=== PATIENT | female | born 1975 | race Caucasian/White ===

== ENCOUNTER 2018-12-31 13:29 | Observation (INO) ==
[2018-12-31 14:40] LABS: Basophils # 0.1 K/mcL (0.0-0.2); Basophils % 0.7 %; Eosinophils # 0.2 K/mcL (0.0-0.6); Eosinophils % 2.2 %; Hematocrit 40.2 % (35.3-44.9); Hemoglobin 12.8 g/dL (11.5-15.4); Immature Granulocytes % 0.5 % (0-4); Lymphocytes # 3.1 K/mcL (0.6-4.6); Mean Corpuscular HGB Conc 31.8 g/dL (31.6-35.5); Mean Corpuscular Hemoglobin 26.9 pg (28.0-33.3); Mean Corpuscular Volume 84.5 fL (83.0-100.0); Mean Platelet Volume 11.7 fL (9.4-12.4); Monocytes # 0.7 K/mcL (0.0-1.3); Monocytes % 6.2 %; Neutrophils # 6.8 K/mcL (1.6-8.9); Platelet Count 166 K/mcL (140-400); Red Blood Count 4.76 M/mcL (3.82-4.97); Red Cell Distribution Width 15.3 % (11.5-14.5); Segmented Neutrophils % 62.4 %
[2018-12-31 14:51] LABS: BUN/Creatinine Ratio 11 (6-26); Blood Urea Nitrogen 9 mg/dL (6-20); Carbon Dioxide 25 mEq/L (23-29); Chloride 109 mEq/L (98-107); Glucose 93 mg/dL (70-105); Osmolality,Calculated 288 (280-300); Potassium 4.3 mEq/L (3.5-5.1); Sodium 140 mEq/L (136-145); eGFR For Non-African Americans > 60 (> 60)
[2018-12-31 14:52] LABS: Troponin I < 0.03 ng/mL (< 0.04)
--- NOTE | 2018-12-31 16:08 | Emergency Department Note ---
Disposition Clinical Impression: Chest pain Qualifiers: Chest pain type: unspecified Qualified Code(s): R07.9 - Chest pain, unspecified Disposition: Admitted As Inpatient Condition: Fair Time of Disposition: 16:11 General Adult HPI - General Chief complaint: ED Chest Pain Stated complaint: CP/Multiple complaints Time Seen by Provider: 12/31/18 15:11 Source: patient, family Limitations: no limitations - History of Present Illness HPI Narrative: This is a 43-year-old female who presented with chest pain. It does sound like she has had multiple stressors in his had some arguments with her family however she also describes that she has a history of cornering artery disease and has a previous PTCA with an occlusion. Does not actually have any stents and. She states that this pain did feel similar. So she has come in. She has not had any lower extremity pain or swelling. She states that her mother had her first at age 45 which is the patient's current age. Pain Scale: 10 - Related Data Home Medications Medication Instructions Recorded Confirmed Gabapentin [Neurontin] 600 mg PO BID 12/31/18 12/31/18 Sertraline [Zoloft] 100 mg PO DAILY 12/31/18 12/31/18 Ziprasidone HCl [Geodon] 40 mg PO BID 12/31/18 12/31/18 Zolpidem [Ambien] 10 mg PO HS PRN 12/31/18 12/31/18 Allergies Allergy/AdvReac Type Severity Reaction Status Date / Time acetaminophen [From Percocet] Allergy Anaphylaxis Verified 09/12/16 12:30 Erythromycin Base Allergy Rash Verified 09/12/16 12:30 Iodinated Contrast- Oral and Allergy Rash Verified 09/12/16 12:30 IV Dye [Iodinated Contrast Media - Oral and] oxycodone [From Percocet] Allergy Anaphylaxis Verified 09/12/16 12:30 All systems ED: reviewed and negative except as stated. 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 Absent: wheezes - Cardiovascular Cardiovascular exam: Present: regular rate, normal rhythm - Abdominal Exam Abdominal exam: Present: soft, Non-Tender - Extremities Exam Extremities exam: Absent: normal capillary refill, pedal edema - Neurological Exam Neurological exam: Present: alert, oriented X3 - Skin Skin exam: Present: warm, dry Course Course Narrative: This patient presents with chest pain and there could be an anxiety component here but unfortunately she has established coronary artery disease and is staying that her pain feels similar. She has had previous PTCA. Has history of smoking and family history. She will need to be ruled out for cardiac standpoint. No new changes on the EKG. First troponin is come back negative. Chest x-ray no acute process as interpreted by the radiologist. Vital Signs Temperature 97.6 F 12/31/18 13:30 Pulse Rate 74 12/31/18 13:30 Respiratory Rate 15 12/31/18 13:30 Blood Pressure 127/81 12/31/18 13:30 O2 Sat by Pulse Oximetry 97 12/31/18 13:30 Temperature 98.0 F 12/31/18 18:37 Pulse Rate 60 12/31/18 18:37 Respiratory Rate 18 12/31/18 18:37 Blood Pressure 142/90 12/31/18 18:37 O2 Sat by Pulse Oximetry 97 12/31/18 18:37 Oxygen Delivery Oxygen Delivery Room Air Medical Decision Making - Lab Data Result diagrams: 12/31/18 14:08 12/31/18 14:08 Lab Results 12/31/18 12/31/18 12/31/18 Range/Units 14:08 14:08 14:08 WBC 10.9 (4.3-11.1) K/mcL RBC 4.76 (3.82-4.97) M/mcL Hgb 12.8 (11.5-15.4) g/dL Hct 40.2 (35.3-44.9) % MCV 84.5 (83.0-100.0) fL MCH 26.9 L (28.0-33.3) pg MCHC 31.8 (31.6-35.5) g/dL RDW 15.3 H (11.5-14.5) % Plt Count 166 (140-400) K/mcL MPV 11.7 (9.4-12.4) fL Immature Gran % 0.5 (0-4) % Seg Neutrophils % 62.4 % Lymphocytes % 28.0 % Monocytes % 6.2 % Eosinophils % 2.2 % Basophils % 0.7 % Neutrophils # 6.8 (1.6-8.9) K/mcL Lymphocytes # 3.1 (0.6-4.6) K/mcL Monocytes # 0.7 (0.0-1.3) K/mcL Eosinophils # 0.2 (0.0-0.6) K/mcL Basophils # 0.1 (0.0-0.2) K/mcL Sodium 140 (136-145) mEq/L Potassium 4.3 (3.5-5.1) mEq/L Chloride 109 H (98-107) mEq/L Carbon Dioxide 25 (23-29) mEq/L BUN 9 (6-20) mg/dL Creatinine 0.80 (0.60-1.20) mg/dL Est GFR ( Amer) > 60 (> 60) Est GFR (Non-Af Amer) > 60 (> 60) BUN/Creatinine Ratio 11 (6-26) Glucose 93 (70-105) mg/dL Calculated Osmolality 288 (280-300) Calcium 9.0 (8.6-10.3) mg/dL Troponin I < 0.03 (< 0.04) ng/mL B-Natriuretic Peptide 34 (Less than 100) pg/mL - EKG Data EKG #1 EKG attestation: Yes I reviewed and interpreted this EKG. EKG results narrative: EKG interpreted by me showing sinus rhythm at a rate of 66, QRS of 95, QTC of 407, axis of 37. No ischemic changes.
[2018-12-31] MEDS ORDERED: Naloxone 0.4 MG/ML INJ IVP PRN (16:50)
--- NOTE | 2018-12-31 17:03 | Internal Med History&Physical ---
Date of Encounter: 12/31/18 Time of Encounter: 17:03 Internal Medicine - H&P: HPI Chief complaint: cp Admitted From: Emergency Dept History of present illness: Ms. Brambila is a 43 year old female past medical history of hypertension COPD blood clot-DVT schizophrenia bipolar recent suicide attempt current smoker- patient presented to [facility] ED with complaints of chest pain. Patient states that for the past week she has been experiencing midsternal chest pain which she describes as stabbing describing it as someone "stabbing her in the heart with a knife"-she also experiences numbness and tingling during the pain which radiates to her arms bilaterally neck and face. Initially the pain with common go and then become constant. Aggravating factors include emotional distress and when she takes a deep breath .there are no relieving factors patient states that she took aspirin and nitroglycerin without any relief. Patient expresses that she has been under a lot of emotional stress lately and that she was just recently discharged from psychiatric hospital in [place] on November. Patient states she has been taking her medications because she does not have any insurance or primary care provider. She has been to multiple hospitals in the past 2-3 years underwent a stress test at [place] a balloon catheter at [facility] 3 years ago. She states she had a heart attack 2 years ago at [facility]-she also has a family history states her mother had a heart attack at age 45 and emphasized that the HEENT now. EKG shows normal sinus rhythm with no ST-T wave abnormalities chest x-ray with no acute process troponin was negative rest of lab work was unremarkable. She has been admitted for further work up and evaluation. Currently patient has chest pain up on palpation as well as on movement. During the interview patient is very short agitated express several times that she has been under a lot of stress. Discussed treatment plan with the patient who verbalized understanding she is currently hemodynamically stable at this time. Past Med Surg Social Fam HX - Past Medical History Medical history: asthma, COPD, hypertension, kidney stones, migraine, myocardial infarction Psychiatric history: anxiety, depression, panic disorder - Past Surgical History Additional surgical history: balloon heart cath - Social History Smoking Status: Current every day smoker Smokeless Tobacco Status: No Alcohol use: none Drug use: opiates, prescription drug abuse - Family History Mother Living Status: Still Living Hx Family Cardiac Disorders: Yes (SC at age 45) Internal Medicine - H&P: Meds Gabapentin [Neurontin] 600 mg PO BID 12/31/18 [History] Sertraline [Zoloft] 100 mg PO DAILY 12/31/18 [History] Ziprasidone HCl [Geodon] 40 mg PO BID 12/31/18 [History] Zolpidem [Ambien] 10 mg PO HS PRN 12/31/18 [History] Allergy/AdvReac Type Severity Reaction Status Date / Time acetaminophen [From Percocet] Allergy Anaphylaxis Verified 09/12/16 12:30 Erythromycin Base Allergy Rash Verified 09/12/16 12:30 Iodinated Contrast- Oral and Allergy Rash Verified 09/12/16 12:30 IV Dye [Iodinated Contrast Media - Oral and] oxycodone [From Percocet] Allergy Anaphylaxis Verified 09/12/16 12:30 All Systems PM: A 10-system review of systems was performed and is negative for pertinent fin dings except as documented above in the HPI. - Constitutional Constitutional: no chills, no fever(s), no night sweats - EENT Eyes: no change in vision, no discharge, no pain, no photophobia Ears: no ear discharge, no ear pain, no tinnitus Nose, mouth and throat: no dysphagia, no nasal discharge, no neck pain, no sore throat - Cardiovascular Cardiovascular ROS IM: chest pain, irregular heart rhythm - Respiratory Respiratory: no cough, no dyspnea, no wheezing, no excessive phlegm production - Gastrointestinal Gastrointestinal: no abdominal pain, no diarrhea, no hematemesis, no hematochezia, no melena, no nausea, no vomiting - Genitourinary Genitourinary: no change in urinary stream, no dysuria, no flank pain, no hematuria - Musculoskeletal Musculoskeletal ROS IM: no numbness, no tingling - Integumentary Integumentary IM: no rash, no unusual bruising - Neurological Neurological ROS: no confusion, no convulsions, no focal weakness, no numbness, no tingling, no tremor(s) - Hematologic/Lymphatic Hematologic/Lymphatic: no easy bruising - Constitutional Vitals: Temp Pulse Resp BP Pulse Ox 97.6 F 64 18 128/76 99 12/31/18 13:30 12/31/18 17:01 12/31/18 17:01 12/31/18 15:01 12/31/18 17:01 General appearance: Present: A&O X 3 Exam: . - Head Head exam: Present: atraumatic, normocephalic - Eye Eye exam: Present: PERRL, conjuntiva pink, sclera anicteric Pupils: Present: PERRL - Neck Neck exam general surgery: Present: supple, trachea midline. Absent: lymphadenopathy - Respiratory Respiratory exam: Present: CTAB. Absent: accessory muscle use, rales, rhonchi, wheezes - Cardiovascular Cardiovascular exam: Present: RRR, +S1, +S2. Absent: diastolic murmur, gallop, rubs, systolic murmur - GI/Abdominal GI/Abdominal exam: Present: normal bowel sounds, soft, no peritoneal signs. Absent: distended, tenderness - Extremities Exam Extremities exam: Present: warm, radial pulses palpable and symmetrical. Absent: calf tenderness, cyanotic, pedal edema - Neurological Exam Neurological exam: Present: CN II-XII intact, oriented X3, no focal deficits. Absent: pronater drift, facial droop, speech deficit - Psychiatric Psychiatric exam: Present: agitated - Skin Skin exam: Present: dry, intact Internal Med - H&P Results - Labs CBC & Chem 7: 12/31/18 14:08 12/31/18 14:08 Labs: Short CBC 12/31/18 Range/Units 14:08 WBC 10.9 (4.3-11.1) K/mcL Hgb 12.8 (11.5-15.4) g/dL Hct 40.2 (35.3-44.9) % Plt Count 166 (140-400) K/mcL Neutrophils # 6.8 (1.6-8.9) K/mcL BMP 12/31/18 14:08 Sodium 140 Potassium 4.3 Chloride 109 H Carbon Dioxide 25 BUN 9 Creatinine 0.80 Glucose 93 Calcium 9.0 Cardiac Enzymes 12/31/18 Range/Units 14:08 Troponin I < 0.03 (< 0.04) ng/mL - EKG Data EKG shows normal: sinus rhythm - Impressions ITS Impressions Chest X-Ray 12/31/18 13:36 IMPRESSION: No evidence for acute cardiopulmonary process. D/ / Gwyn Monroy MD / Gwyn Monroy MD Interpreting Provider: Gwyn Monroy MD - Assessment and Plan (1) Chest pain Current Visit: Yes Status: Acute Assessment and plan: Patient has been experiencing stabbing chest pain for one week with numbness and tingling in arms head and neck during the chest pain it comes and goes aggravated with emotional upset and breathing patient took a nitroglycerin as well as aspirin which did not relieve the pain- risk factors include-obesity hypertension smoking family history-previous SC? Chest pain is reproducible and is present when patient raises arms Patient states she has stress test as well as a balloon angioplasty 2 years ago. Stress. Test performed at [facility] angioplasty at [facility]. She also states she had a heart attack and was treated at [facility] troponins initial troponin negative EKG with no ST-T wave abnormalities check EKG in the a.m. Obtain cardiac echo Nitroglycerin as needed for chest pain Aspirin Lipid profile in the a.m. Nothing by mouth after midnight Tox screen Stress test pending results of pending troponin- Day team reevaluate Qualifiers: Chest pain type: unspecified Qualified Code(s): R07.9 - Chest pain, unspecified (2) HTN (hypertension) Current Visit: Yes Status: Acute Assessment and plan: Patient states she has a history of hypertension however she is currently not on any medications states she does not have a primary care provider or any insurance currently blood pressure is controlled we will continue to monitor Qualifiers: Hypertension type: essential hypertension Qualified Code(s): I10 - Essential (primary) hypertension (3) Bipolar 1 disorder Current Visit: Yes Status: Acute Assessment and plan: History of bipolar disorder was recently discharged from psychiatric hospital in [place] -we will need to set up follow-up as outpatient (4) Schizo affective schizophrenia Current Visit: Yes Status: Acute Assessment and plan: Recently discharged from psychiatric hospital-we will need outpatient follow-up (5) Nicotine dependence Current Visit: Yes Status: Acute Assessment and plan: History of 1-1/2 pack per day smoker encouraged patient to stop smoking we will need smoking cessation education prior to discharge Qualifiers: Nicotine product type: cigarettes Substance use status: uncomplicated Qualified Code(s): F17.210 - Nicotine dependence, cigarettes, uncomplicated (6) COPD (chronic obstructive pulmonary disease) Current Visit: Yes Status: Acute Assessment and plan: 1 her history COPD non-oxygen dependent uses inhalers at home current smoker does not appear to be in exacerbation at this time Qualifiers: COPD type: unspecified COPD Qualified Code(s): J44.9 - Chronic obstructive pulmonary disease, unspecified (7) DVT prophylaxis Current Visit: Yes Status: Acute Assessment and plan: States she has a history of DVT-Lovenox subcutaneous - Time Spent With Patient Total time spent is greater than 50% in coordination of care (as documented) at patient's floor/unit and/or counseling patient:
[2018-12-31] MEDS: Ibuprofen 400 MG TABLET PO PRN (17:24)
[2018-12-31] MEDS ORDERED: Nitroglycerin 0.4 MG TAB.SUBL SL PRN (18:16)
[2018-12-31] MEDS ORDERED: Ondansetron 4 MG/2 ML VIAL IVP ONE (21:30)
[2018-12-31] MEDS ORDERED: Ibuprofen 400 MG TABLET PO ONE (21:31)
[2018-12-31 23:29] LABS: Amphetamine Screen,Urine Negative ng/mL (Cutoff=1000); Barbiturate Screen,Urine Negative ng/mL (Cutoff=200); Benzodiazepines Screen,Urine Negative ng/mL (Cutoff=200); Cannabinoid Screen,Urine Negative ng/mL (Cutoff = 50); Cocaine Screen,Urine Negative ng/mL (Cutoff= 300); Opiate Screen,Urine Negative ng/mL (Cutoff=300); Phencyclidine Screen,Urine Negative ng/mL (Cutoff=25)
[2019-01-01] MEDS: Ziprasidone 20 MG CAPSULE PO SCH ×3 (00:33→19:59)
[2019-01-01] MEDS: Gabapentin 300 MG CAPSULE PO SCH ×3 (00:34→20:00)
[2019-01-01 03:35] LABS: Basophils # 0.1 K/mcL (0.0-0.2); Basophils % 0.6 %; Eosinophils # 0.2 K/mcL (0.0-0.6); Eosinophils % 2.1 %; Hematocrit 36.7 % (35.3-44.9); Hemoglobin 11.8 g/dL (11.5-15.4); Immature Granulocytes % 0.5 % (0-4); Lymphocytes # 4.1 K/mcL (0.6-4.6); Lymphocytes % 42.1 %; Mean Corpuscular HGB Conc 32.2 g/dL (31.6-35.5); Mean Corpuscular Hemoglobin 27.6 pg (28.0-33.3); Mean Corpuscular Volume 85.7 fL (83.0-100.0); Mean Platelet Volume 11.9 fL (9.4-12.4); Monocytes # 0.6 K/mcL (0.0-1.3); Monocytes % 6.3 %; Neutrophils # 4.7 K/mcL (1.6-8.9); Platelet Count 146 K/mcL (140-400); Red Blood Count 4.28 M/mcL (3.82-4.97); Red Cell Distribution Width 15.6 % (11.5-14.5); Segmented Neutrophils % 48.4 %
[2019-01-01 03:55] LABS: BUN/Creatinine Ratio 13 (6-26); Blood Urea Nitrogen 11 mg/dL (6-20); Calcium 8.7 mg/dL (8.6-10.3); Carbon Dioxide 24 mEq/L (23-29); Chloride 111 mEq/L (98-107); Chol/HDL Ratio 6.3 (0-4.9); Cholesterol 171 mg/dL (< 200); Glucose 94 mg/dL (70-105); HDL Cholesterol 27 mg/dL (40-59); LDL Cholesterol,Calculated 90 mg/dL (0-99); Magnesium 2.2 mg/dL (1.6-2.6); Osmolality,Calculated 291 (280-300); Potassium 4.5 mEq/L (3.5-5.1); Sodium 141 mEq/L (136-145); Triglycerides 269 mg/dL (< 150); eGFR For Non-African Americans > 60 (> 60)
[2019-01-01] MEDS: *HR* Enoxaparin 40 MG/0.4 ML SYRINGE SQ SCH (05:42)
--- NOTE | 2019-01-01 05:57 | Event Note ---
Date of Encounter: 01/01/19 Time of Encounter: 05:55 Notified by nurse of patients heart rate dropping into 40's while sleeping. Patient asymptomatic, states its normal for heart rate to run low while sleeping. Previous EKG on file shows sinus bradycardia. Will continue telemetry monitoring. Nurse to notify of any new changes.
[2019-01-01] MEDS ORDERED: Regadenoson 0.4 MG/5 ML SYRINGE IVP ONE (11:09)
[2019-01-01] MEDS: Aspirin 81 MG TAB.CHEW PO SCH (12:29)
[2019-01-01] MEDS: Ibuprofen 400 MG TABLET PO PRN ×2 (13:45→23:30)
[2019-01-01] MEDS: Ondansetron 4 MG/2 ML VIAL IVP PRN ×2 (13:46→20:00)
--- NOTE | 2019-01-01 18:42 | Internal Med Progress Note ---
Hospitalist Progress Note - Encounter Date of Encounter: 01/01/19 Time of Encounter: 18:39 - Subjective Interval History: Pt seen and examined in the room. She currently is pain free. - Exam Vitals: Temp Pulse Resp BP Pulse Ox 98.1 F 62 16 135/78 94 01/01/19 16:03 01/01/19 16:03 01/01/19 16:03 01/01/19 16:03 01/01/19 16:03 Exam: . - Assessment and Plan (1) Chest pain Current Visit: Yes Status: Acute Assessment and Plan: Trop negative x3. EKG has no acute changes. ECHO mod LVDD. Pending stress test. (2) HTN (hypertension) Current Visit: Yes Status: Acute Assessment and Plan: Patient states she has a history of hypertension however she is currently not on any medications states she does not have a primary care provider or any insurance currently blood pressure is controlled we will continue to monitor (3) Bipolar 1 disorder Current Visit: Yes Status: Acute Assessment and Plan: History of bipolar disorder was recently discharged from psychiatric hospital in [place] -we will need to set up follow-up as outpatient (4) Schizo affective schizophrenia Current Visit: Yes Status: Acute Assessment and Plan: Recently discharged from psychiatric hospital-we will need outpatient follow-up (5) Nicotine dependence Current Visit: Yes Status: Acute Assessment and Plan: History of 1-1/2 pack per day smoker encouraged patient to stop smoking we will need smoking cessation education prior to discharge (6) COPD (chronic obstructive pulmonary disease) Current Visit: Yes Status: Acute Assessment and Plan: 1 her history COPD non-oxygen dependent uses inhalers at home current smoker does not appear to be in exacerbation at this time (7) DVT prophylaxis Current Visit: Yes Status: Acute Assessment and Plan: States she has a history of DVT-Lovenox subcutaneous - Time Spent with Patient Total time spent is greater than 50% in coordination of care (as documented) at patient's floor/unit and/or counseling patient: Greater than 35 minutes Plan of Care Discussed with: patient Internal Medicine: Result - Labs CBC & Chem 7: 01/01/19 02:57 01/01/19 02:57 Labs: Short CBC 01/01/19 Range/Units 02:57 WBC 9.8 (4.3-11.1) K/mcL Hgb 11.8 (11.5-15.4) g/dL Hct 36.7 (35.3-44.9) % Plt Count 146 (140-400) K/mcL Neutrophils # 4.7 (1.6-8.9) K/mcL BMP 01/01/19 02:57 Sodium 141 Potassium 4.5 Chloride 111 H Carbon Dioxide 24 BUN 11 Creatinine 0.84 Glucose 94 Calcium 8.7 Cardiac Enzymes 12/31/18 01/01/19 Range/Units 20:26 02:57 Troponin I < 0.03 < 0.03 (< 0.04) ng/mL - Impressions Impressions Echocardiogram 01/01/19 16:55 Impressions: LVEF 60%. Moderate left ventricular diastolic dysfunction. Normal right ventricular structure and function. Mild mitral regurgitation. Mild tricuspid regurgitation. Mild pulmonic regurgitation. No pulmonary hypertension. Left Ventricular Wall Motion: Rest Echo Findings All wall segments showed normal motion. Findings: Study Quality * Technically adequate exam. ECG Findings * Sinus bradycardia. Left Ventricle * LVEF 60%. * Normal LV chamber size, wall thickness and function. * Moderate left ventricular diastolic dysfunction. Right Ventricle * Normal right ventricular structure and function. Left Atrium * Normal left atrial size. Right Atrium * Normal right atrial size. Aortic Valve * No aortic regurgitation. * Trileaflet aortic valve. * No aortic stenosis. Mitral Valve * Normal mitral valve structure. * No mitral stenosis. * Mild mitral regurgitation. Tricuspid Valve * Normal tricuspid valve structure. * Mild tricuspid regurgitation. * Estimated RA pressure is 3 mmHg. * Estimated RVSP is 25 mmHg. * No pulmonary hypertension. Pulmonic Valve * Pulmonic valve is not well visualized. * No pulmonic stenosis. * Mild pulmonic regurgitation. Pulmonary Artery * Pulmonary artery not well visualized. Aorta * Normally sized aortic root. * Proximal ascending thoracic aorta not well visualized. Pericardium * There is no pericardial effusion present. Interatrial Septum * No evidence of PFO by color Doppler. IVC * Normal IVC dimensions and inspiratory collapse. Consult Discharge Plan - Plan Referrals: NONE,PCP [Primary Care Provider] - (1) Chest pain Qualifiers: Chest pain type: unspecified Qualified Code(s): R07.9 - Chest pain, unspecified (2) HTN (hypertension) Qualifiers: Hypertension type: essential hypertension Qualified Code(s): I10 - Essential (primary) hypertension (5) Nicotine dependence Qualifiers: Nicotine product type: cigarettes Substance use status: uncomplicated Qualified Code(s): F17.210 - Nicotine dependence, cigarettes, uncomplicated (6) COPD (chronic obstructive pulmonary disease) Qualifiers: COPD type: unspecified COPD Qualified Code(s): J44.9 - Chronic obstructive pulmonary disease, unspecified
[2019-01-01] MEDS: Nicotine 7 MG PATCH.TD24 TD SCH (20:03)
[2019-01-01] MEDS ORDERED: DiphenhydraMINE CREAM 28.4 GM TUBE TP PRN (20:54)
[2019-01-02] MEDS: *HR* Enoxaparin 40 MG/0.4 ML SYRINGE SQ SCH (05:46)
[2019-01-02] MEDS: Ibuprofen 400 MG TABLET PO PRN (06:35)
[2019-01-02] MEDS: Nicotine 7 MG PATCH.TD24 TD SCH (08:57)
[2019-01-02] MEDS: Gabapentin 300 MG CAPSULE PO SCH (08:57)
[2019-01-02] MEDS: Ziprasidone 20 MG CAPSULE PO SCH (08:57)
[2019-01-02] MEDS: Aspirin 81 MG TAB.CHEW PO SCH (08:57)
[2019-01-02] MEDS: Ondansetron 4 MG/2 ML VIAL IVP PRN (09:01)
[2019-01-02 11:50] VITALS: BP 123/87
--- NOTE | 2019-01-02 13:12 | Discharge Summary ---
- NOTES TO OUTPATIENT PROVIDER Notes to Outpatient Provider: f/u with PCP within a week. Orders not resulted at time of discharge: Pending orders 01/01/19 08:56 NM tiffanie perf SPECT multi [NM] Routine Date of Encounter: 01/02/19 Time of Encounter: 13:09 - Discharge Diagnosis (1) Chest pain Priority: Primary Status: Acute Qualifiers: Chest pain type: unspecified Qualified Code(s): R07.9 - Chest pain, unspecified (2) HTN (hypertension) Priority: Secondary Status: Chronic Qualifiers: Hypertension type: essential hypertension Qualified Code(s): I10 - Essential (primary) hypertension (3) Bipolar 1 disorder Priority: Secondary Status: Chronic (4) Schizo affective schizophrenia Priority: Secondary Status: Chronic (5) Nicotine dependence Priority: Secondary Status: Chronic Qualifiers: Nicotine product type: cigarettes Substance use status: uncomplicated Qualified Code(s): F17.210 - Nicotine dependence, cigarettes, uncomplicated (6) COPD (chronic obstructive pulmonary disease) Priority: Secondary Status: Chronic Qualifiers: COPD type: unspecified COPD Qualified Code(s): J44.9 - Chronic obstructive pulmonary disease, unspecified (7) DVT prophylaxis Priority: Primary Status: Acute Hospital course: Ms. Brambila is a 43 year old female past medical history of hypertension COPD blood clot-DVT schizophrenia bipolar recent suicide attempt current smoker- patient presented to [facility] ED with complaints of chest pain. Patient states that for the past week she has been experiencing midsternal chest pain which she describes as stabbing describing it as someone "stabbing her in the heart with a knife"-she also experiences numbness and tingling during the pain which radiates to her arms bilaterally neck and face. Initially the pain with common go and then become constant. Aggravating factors include emotional distress and when she takes a deep breath. While in the emergency room, patient vital signs were stable, first set of troponin was negative, EKG has no acute ST-T change. Patient was admitted for further evaluation. An echocardiogram with ejection fraction 60%, moderate left ventricular diastolic dysfunction, normal right ventricular structure and function, mild TR/MR/TR. Patient underwent a stress test on 01/01/2019 which revealed negative for ischemia or infarct, pharmacological stress ECG is negative for ischemia at level of heart rate achieved gaited ejection fraction more than 70%. Further testing showed normal troponin 3, EKG continue failing to show any acute ST-T change. Patient is discharged home today, she will follow-up with PCP within a week. Discharge discussed with: patient Time spent discussing smoking cessation with patient: more than 10 minutes - Time Spent with Patient Total time spent providing and/or coordinating discharge services: Time spent: Greater than 30 minutes - Discharge Medications Prescriptions: Continue Zolpidem [Ambien] 10 mg PO HS PRN PRN Reason: SLEEP Sertraline [Zoloft] 100 mg PO DAILY Gabapentin [Neurontin] 600 mg PO BID Ziprasidone HCl [Geodon] 40 mg PO BID Home Medications: Gabapentin [Neurontin] 600 mg PO BID 12/31/18 [History] Sertraline [Zoloft] 100 mg PO DAILY 12/31/18 [History] Ziprasidone HCl [Geodon] 40 mg PO BID 12/31/18 [History] Zolpidem [Ambien] 10 mg PO HS PRN 12/31/18 [History] Allergies/Adverse Reactions: Allergy/AdvReac Type Severity Reaction Status Date / Time acetaminophen [From Percocet] Allergy Anaphylaxis Verified 09/12/16 12:30 Erythromycin Base Allergy Rash Verified 09/12/16 12:30 Iodinated Contrast- Oral and Allergy Rash Verified 09/12/16 12:30 IV Dye [Iodinated Contrast Media - Oral and] oxycodone [From Percocet] Allergy Anaphylaxis Verified 09/12/16 12:30 Date of admission: 12/31/18 17:38 Primary care physician: PCP NONE Consults: 12/31/18 18:48 Consult to [employer] [CONS] Routine Reason for SW Consult: pt request services for insurance Anticipated date of discharge: 01/02/19 - Constitutional Vitals: Temp Pulse Resp BP Pulse Ox 98.2 F 87 18 123/87 95 01/02/19 11:46 01/02/19 11:46 01/02/19 11:46 01/02/19 11:46 01/02/19 11:46 General appearance: Present: A&O X 3 Exam: PHYSICAL EXAMINATION: GENERAL APPEARANCE: The patient is alert, oriented and in no acute distress. HEENT: Head is normocephalic. The sinuses are nontender. Pupils are equal and reactive. The nares are patent. Oropharynx clear without lesions. NECK: Supple without lymphadenopathy. HEART: Regular rate and rhythm. LUNGS: No crackles or wheezes are heard. ABDOMEN: Soft, nontender, nondistended with good bowel sounds heard. Inguinal area is normal. EXTREMITIES: Without cyanosis, clubbing or edema. NEUROLOGICAL: Gross nonfocal. SKIN: Warm and dry without any rash. - Patient Status Disposition: Home, Self-Care Condition: Fair Functional capacity at discharge: independent ambulation Overall status at discharge: patient is progressing back to baseline - Discharge Instructions Follow Up With: NONE,PCP [Primary Care Provider] - Namrata Cardona, [employer] [Advanced Practice Nurse] - 01/06/19 1:30 pm (Please bring all ID cards, insurance cards, and medications within their containers. Please arrive 20 minutes early to appointment to fill out paperwork.) - Diet and Activity Activity: increase activity as tolerated Diet: advance to your usual diet
--- NOTE | 2019-01-02 20:38 | Electrocardiograph Report ---
[address] [place], [place] [address] Test Date: 2019-01-01 Pat Name: Lynda Brambila Department: 113 Room: 3B Gender: F Healthcare Financial Analyst: JUSTUS : 1975 Requested By: Vasile Thurman Order Number: [id number] Reading MD: Debi Harris Measurements Intervals [place] Rate: 37 P: 48 [place]: 182 QRS: 8 QRSD: 109 T: 9 QT: 464 QTc: 376 Interpretive Statements SINUS BRADYCARDIA Electronically Signed On 01-02-2019 20:37:15 EDT by Debi Harris
--- NOTE | 2019-01-03 08:00 | Electrocardiograph Report ---
[address] [address] Test Date: 2018-12-31 Pat Name: Lynda Brambila Department: 104 Room: 3B Gender: F Intelligence Officer: CARLITOS : 1975 Requested By: Jesusita Frank Order Number: [id number] Reading MD: Cameron Larson Measurements Intervals [place] Rate: 66 P: 65 [place]: 150 QRS: 37 QRSD: 95 T: 49 QT: 394 QTc: 407 Interpretive Statements SINUS RHYTHM Electronically Signed On 01-03-2019 7:58:42 EDT by Cameron Larson
== END 2019-01-02 13:28 | disposition home or self-care (01) ==
LOC: EMEROOARM 13:29 → 3BNU 13:29
PROVIDERS: ADMIT Internal Medicine; ATTEND Internal Medicine